=== PATIENT | female | born 1990 | race Caucasian/White ===

== ENCOUNTER 2022-01-07 07:30 | Outpatient (RCR) | payer OTHER, SELFPAY | END 2022-03-17 12:07 | disposition home or self-care (01) | PROVIDERS: Visit Provider Family Medicine | DX: N39.3 Stress incontinence (female) (male) (principal); N81.89 Other female genital prolapse; Z51.89 Encounter for other specified aftercare | CPT/HCPCS: 97140; 97162; 97535 ==

== ENCOUNTER 2022-05-02 09:39 | Emergency (ER) | payer OTHER, SELFPAY ==
[2022-05-02] VITALS (15 sets, daily range): BP systolic 105–138; BP diastolic 72–87; PULSE 64–73; RESP 20; TEMP 36.4; O2SAT 98–100; BMI 18.6
--- NOTE | 2022-05-02 10:16 | CRLHL7_ITS ---
For Patients: As a result of the Century Cures Act, medical imaging exams and procedure reports are released immediately into your electronic medical record. You may view this report before your referring provider. If you have questions, please contact your health care provider. INDICATION: Chest pain. TECHNIQUE: Chest 2 views. COMPARISON: October 03, 2021 FINDINGS: Cardiovascular and mediastinum: Heart size and vasculature are normal in caliber and appearance. Lungs and pleural spaces: Lungs are clear. No sign of infiltrate. No sign of pleural effusion. No pneumothorax. Bones and soft tissues: No significant findings. IMPRESSION: No evidence of acute cardiopulmonary process. Dictated by Ralph Duran MD @ 05/02/2022 10:59:19 AM (Electronically Signed)
--- NOTE | 2022-05-02 10:18 | ED_ITS ---
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 It has been constant since yesterday. She also sees [facility] and each winter she gets a ?wheezing? problem when she is around her animals as they now are mostly in the barn. She feels that is going on now. No leg swelling, no edema, no bleeding or clotting problems, no travel. She has been active. She is also on her immense amount of stress as she has reports she has had a recent divorce, loss of a child, and work stress. She has had no coronary disease, is generally healthy. She has takes acyclovir at home as needed. No other specific complaints. She can make the pain when she takes a deep breath and she has some discomfort and tightness in her chest with a deep breath, she will even notice a little bit at rest now but it is not as intense. No palpable nature to the pain. Related Data Previous Rx's Medication Instructions Recorded prednisone 20 mg tablet 20 mg PO BID #10 tabs 05/02/22 Allergies Allergy/AdvReac Type Severity Reaction Status Date / Time No Known Drug Allergies Allergy Verified 05/02/22 09:54 Review of Systems Status of ROS: Reports: 10 or more systems reviewed and unremarkable except as noted in History and below PFSH PFS Social History Smoking Status: Former smoker What tobacco products do you use: cigarettes Do you use any of these nicotine containing products: None Second hand tobacco smoke exposure: No How often do you have a drink containing alcohol: never AUDIT-C Alcohol total score: 0 Non-prescribed substance use: denies use Exam Narrative: Exam Narrative: Objective: Angelique is in no apparent distress, breathing normally, noncyanotic Vital signs are unremarkable HEENT is unremarkable no facial asymmetry mouth clear neck is supple Chest is clear no rales or wheezing Heart rhythm regular heart murmur No chest wall pain to palpation Neurologic is nonfocal in upper lower extremities the patient has no swelling or legs. Skin is warm and dry Const: Vital Signs, click to edit/add: Vital Signs - 24 hr 05/02/22 09:50 05/02/22 09:53 Temperature 97.5 F L Pulse Rate [Pulse Oximeter] 71 Respiratory Rate 20 Blood Pressure [Le ft Upper Arm] 138/87 Pulse Oximetry 99 99 Oxygen Delivery Me thod Room Air Course Vital Signs Vital signs: Initial Vital Signs Temperature 97.5 F L 05/02/22 09:50 Temperature Source Temporal Artery Scan 05/02/22 09:50 Pulse Rate 71 05/02/22 09:50 Respiratory Rate 20 05/02/22 09:50 Blood Pressure 138/87 05/02/22 09:50 Blood Pressure Mean 104 05/02/22 09:50 Blood Pressure Position Sitting 05/02/22 09:50 Pulse Oximetry 99 05/02/22 09:50 Oxygen Delivery Method 05/02/22 09:50 Vital Signs Temperature 97.5 F L 05/02/22 09:50 Pulse Rate 71 05/02/22 09:50 Respiratory Rate 20 05/02/22 09:50 Blood Pressure 138/87 05/02/22 09:50 Pulse Oximetry 99 05/02/22 09:50 Oxygen Delivery Method 05/02/22 09:50 Temperature 97.5 F L 05/02/22 09:50 Pulse Rate 71 05/02/22 09:50 Respiratory Rate 20 05/02/22 09:50 Blood Pressure 138/87 05/02/22 09:50 Pulse Oximetry 99 05/02/22 09:53 Oxygen Delivery Method 05/02/22 09:50 Medical Decision Making MDM Narrative Medical decision making narrative: Patient is a 31-year-old white female with some chest tightness over the last several days, she also notices some wheezing, has had this yearly about this time when she is around her animals. Also has lot of stress lately. She has an IUD in place. I think at this time would be reasonable to check a troponin, EKG, chest x-ray, electrolytes and labs. Inflammatory marker. If these are reassuring I think the patient likely has some chest wall discomfort and we co uld try steroid medication, she also may have some mild hypersensitivity pneumonitis from her farming. I think a steroid would help that as well. Of note her EKG by my read shows normal sinus rhythm no acute ST T wave changes Addendum: By my read her EKG looks unremarkable for ischemic change, her chest x-ray by my read looks negative. Patient's laboratory studies look negative including a D-dimer is negative troponin is negative CBC and Chem profile are unremarkable. At this point I think the patient likely has chest wall inflammation, no evidence of pericarditis on her EKG, no positive inflammatory markers, and her COVID influenza RSV are all negative CRP is also negative. Will treat her with prednisone, Advil at home. Light activity, follow up with primary care in the next 2 3 days, return to ED sooner problems concerns worsening thanks Lab Data Labs: Lab Results 05/02/22 05/02/22 05/02/22 Range/Units 10:17 10:30 10:30 WBC 8.88 (4.50-11.00) K/uL RBC 4.18 (4.00-5.20) m/uL Hgb 12.4 (12.0-16.0) gm/dL Hct 37.8 (33.0-51.0) % MCV 90 (80-100) fL MCH 30 (26-34) pg MCHC 33 (32-36) gm/dL RDW Coeff of Edward 12.3 (11.5-15.5) % Plt Count 191 (140-440) K/uL Neut % (Auto) 75.0 H (42.0-72.0) % Lymph % (Auto) 17.3 L (20-44) % Phelps % (Auto) 6.6 (0.0-11.0) % Eos % (Auto) 0.8 (0.0-7.0) % Baso % (Auto) 0.2 (0.0-3.0) % Neut # (Auto) 6.70 (1.7-7.0) K/uL Lymph # (Auto) 1.50 (0.90-2.90) K/uL Phelps # (Auto) 0.60 (0.00-0.90) K/UL Eos # (Auto) 0.07 (0.00-0.50) K/uL Baso # (Auto) 0.02 (0.00-0.30) K/uL D-Dimer Quant (PE/DVT) < 0.27 (0.00-0.50) ug/ml Sodium (135-149) mmol/L Potassium (3.6-5.1) mmol/L Chloride (96-114) mmol/L Carbon Dioxide (20-32) mmol/L BUN (5-24) mg/dL Creatinine (0.5-1.5) mg/dL Estimated Creat Clear Estimated GFR ml/min Glucose (60-115) mg/dL Calcium (8.4-10.6) mg/dL Total Bilirubin (0.1-1.5) mg/dL Direct Bilirubin (0.0-0.5) mg/dL AST (12-35) U/L ALT (4-35) U/L Alkaline Phosphatase (40-150) U/L Troponin I (0.01-0.04) ng/mL C-Reactive Protein (0.5-1.0) mg/dL Total Protein (6.0-8.3) g/dL Albumin (3.3-5.0) g/dL SARS-CoV-2 (PCR) Negative SARS-CoV-2 (Negative) Influenza Type A (PCR) Negative PCR FLU A (Negative) Influenza Type B (PCR) Negative PCR FLU B (Negative) RSV (PCR) Negative PCR RSV (Negative) 05/02/22 Range/Units 10:30 WBC (4.50-11.00) K/uL RBC (4.00-5.20) m/uL Hgb (12.0-16.0) gm/dL Hct (33.0-51.0) % MCV (80-100) fL MCH (26-34) pg MCHC (32-36) gm/dL RDW Coeff of Edward (11.5-15.5) % Plt Count (140-440) K/uL Neut % (Auto) (42.0-72.0) % Lymph % (Auto) (20-44) % Phelps % (Auto) (0.0-11.0) % Eos % (Auto) (0.0-7.0) % Baso % (Auto) (0.0-3.0) % Neut # (Auto) (1.7-7.0) K/uL Lymph # (Auto) (0.90-2.90) K/uL Phelps # (Auto) (0.00-0.90) K/UL Eos # (Auto) (0.00-0.50) K/uL Baso # (Auto) (0.00-0.30) K/uL D-Dimer Quant (PE/DVT) (0.00-0.50) ug/ml Sodium 139 (135-149) mmol/L Potassium 4.1 (3.6-5.1) mmol/L Chloride 106 (96-114) mmol/L Carbon Dioxide 27 (20-32) mmol/L BUN 11 (5-24) mg/dL Creatinine 0.7 (0.5-1.5) mg/dL Estimated Creat Clear 96.77 Estimated GFR 119 ml/min Glucose 97 (60-115) mg/dL Calcium 9.0 (8.4-10.6) mg/dL Total Bilirubin 0.6 (0.1-1.5) mg/dL Direct Bilirubin 0.1 (0.0-0.5) mg/dL AST 18 (12-35) U/L ALT 14 (4-35) U/L Alkaline Phosphatase 54 (40-150) U/L Troponin I < 0.01 L (0.01-0.04) ng/mL C-Reactive Protein < 0.5 L (0.5-1.0) mg/dL Total Protein 7.4 (6.0-8.3) g/dL Albumin 4.3 (3.3-5.0) g/dL SARS-CoV-2 (PCR) (Negative) Influenza Type A (PCR) (Negative) Influenza Type B (PCR) (Negative) RSV (PCR) (Negative) Discharge Plan Discharge Clinical Impression: Chest pain Patient Disposition: Home, Self-Care Condition: Stable Additional Instructions: Light activity, prednisone daily 2 times a day for 5 days (start tomorrow). May treat use some Advil and Tylenol as well. Return if problems or concerns. Light activity recommended. Update regular doctor next 2-3 days if not resolving return as needed. Activity Level: Light activity Discharge Diet: Regular Prescriptions: New prednisone 20 mg tablet 20 mg PO BID Qty: 10 0RF Follow Up/Referrals: Rita Morel MD [Primary Care Provider] - Stand Alone Forms: [employer] Info Instructions
[2022-05-02] MEDS: ASPIRIN 81 MG TAB.CHEW 324 MG PO (10:22)
[2022-05-02 10:43] LABS: Basophils Absolute Auto 0.02 K/uL (0.00-0.30); Basophils Percent Auto 0.2 % (0.0-3.0); Eosinophils Absolute Auto 0.07 K/uL (0.00-0.50); Eosinophils Percent Auto 0.8 % (0.0-7.0); Hematocrit 37.8 % (33.0-51.0); Hemoglobin* 12.4 gm/dL (12.0-16.0); Immature Granulocytes Abs Auto 0.01 K/uL (0.00-0.30); Immature Granulocytes Pct Auto 0.1 %; Lymphocytes Percent Auto 17.3 % (20-44); Mean Corpuscular HGB Conc 33 gm/dL (32-36); Mean Corpuscular Hemoglobin 30 pg (26-34); Mean Corpuscular Volume 90 fL (80-100); Monocytes Percent Auto 6.6 % (0.0-11.0); Platelet Count* 191 K/uL (140-440); RDW Coefficient of Variation % 12.3 % (11.5-15.5); Red Blood Count 4.18 m/uL (4.00-5.20); White Blood Count* 8.88 K/uL (4.50-11.00)
[2022-05-02 10:45] LABS: Slide Review Reflex No
[2022-05-02 10:58] LABS: Albumin* 4.3 g/dL (3.3-5.0); Chloride* 106 mmol/L (96-114)
[2022-05-02 10:59] LABS: Potassium* 4.1 mmol/L (3.6-5.1); Sodium* 139 mmol/L (135-149)
[2022-05-02 11:01] LABS: Creatinine* 0.7 mg/dL (0.5-1.5); Est. Creatinine Clearance* 96.77; Estimated Glomerular Filt Rate 119 ml/min
[2022-05-02 11:02] LABS: Alanine Aminotransferase* 14 U/L (4-35); Alkaline Phosphatase* 54 U/L (40-150); Aspartate Amino Transferase* 18 U/L (12-35); Bilirubin Direct* 0.1 mg/dL (0.0-0.5); Bilirubin Total* 0.6 mg/dL (0.1-1.5); Blood Urea Nitrogen* 11 mg/dL (5-24); Carbon Dioxide* 27 mmol/L (20-32); Glucose* 97 mg/dL (60-115); Total Protein* 7.4 g/dL (6.0-8.3)
[2022-05-02 11:14] LABS: C Reactive Protein* < 0.5 mg/dL (0.5-1.0); D Dimer Quantitative* < 0.27 ug/ml (0.00-0.50); Troponin I* < 0.01 ng/mL (0.01-0.04)
[2022-05-02 11:21] LABS: PCR FLU A Negative PCR FLU A (Negative); PCR FLU B Negative PCR FLU B (Negative); PCR RSV Negative PCR RSV (Negative)
[2022-05-02 11:23] LABS: SARS PCR* Negative SARS-CoV-2 (Negative)
[2022-05-02] MEDS: predniSONE 10 MG TABLET 50 MG PO (12:10)
== END 2022-05-02 12:39 | disposition home or self-care (01) ==
PROVIDERS: Emergency Provider Family Medicine; PCP Family Medicine
DX: R07.9 Chest pain, unspecified (principal)
CPT/HCPCS: 36415; 71046; 80048; 80076; 84484; 85025; 85379; 86140; 87502; 87634; 87635; 93005; 94761; 99284; 99285; A9270; J7512